=== PATIENT | male | born 1945 | race Caucasian/White ===

== ENCOUNTER 2016-09-01 11:25 | Emergency (ER) | payer MEDICARE ==
[2016-09-01 12:00] LABS: #Basophils 0.1 thou/uL (0.0-0.2); #Eosinphils 0.2 thou/uL (0.0-0.7); #Lymphocytes 1.1 thou/uL (1.20-3.40); #Monocytes 0.7 thou/uL (0.11-0.59); #Neutrophils 7.4 thou/uL (1.40-6.50); %Basophils 1.3 % (0.0-1.0); %Eosinophils 1.9 % (0.0-10.0); Hematocrit 41.1 % (42.0-52.0); Red Blood Cell (RBC) Count 4.24 mill/uL (4.70-6.10); White Blood Cell (WBC) Count 9.4 thou/uL (4.8-10.8)
[2016-09-01 12:07] LABS: ALT (SGPT) 27 U/L (0-55); AST (SGOT) 20 U/L (5-34); Alkaline Phosphatase 49 U/L (40-150); Anion Gap 13 mmol/L (10-20); BUN (Urea Nitrogen) 13 mg/dL (8.4-25.7); Bilirubin, Total 0.8 mg/dL (0.2-1.2); Calc. Creatinine Clearance 0 mL/min (70-130); Calcium 9.5 mg/dL (7.8-10.44); Carbon Dioxide 25 mmol/L (23-31); Chloride 105 mmol/L (98-107); Estimated GFR-MDRD 70; Protein, Total 7.3 g/dL (5.8-8.1)
[2016-09-01 12:09] LABS: Troponin I Less than 0.010 ng/mL (< 0.028)
[2016-09-01 12:24] LABS: Lactic Acid - Sepsis 1.4 mmol/L (0.5-2.2)
--- NOTE | 2016-09-01 13:34 | ERRECORD ---
[facility] EMERGENCY RECORD HPI COUGH CHIEF COMPLAINT: Patient presents for evaluation of cough, productive of white sputum, Patient presents for evaluation of congestion. (12:00 JPIP) HISTORIAN: History provided by patient, History provided by patient's spouse, call from Dr Frost. (12:00 JPIP) LOCATION: No localizing symptoms. (12:00 JPIP) SEVERITY: Current severity of pain rated as 7/10. (12:00 JPIP) TIME COURSE: Gradual onset of symptoms, 2, weeks ago, There has been no change in the patient's symptoms over time. (12:00 JPIP) ASSOCIATED WITH: Associated with chest pain, No associated chills, No associated diarrhea, No associated dyspnea on exertion, No associated fever, No associated hyperventilation, No associated nausea, No associated peripheral edema, No associated stridor, Associated with upper respiratory infection, No associated wheezing, has finished a coarse levaquin, with a round of ABX approx. 1week prior to this round. (12:00 JPIP) EXACERBATED BY: Patient's condition exacerbated by nothing. (12:00 JPIP) RELIEVED BY: Patient's condition relieved by nothing. (12:00 JPIP) E/M CAVEAT: Emergency room caveat invoked due to patient with dementia. (12:03 JPIP) ROS (12:02 JPIP) CONSTITUTIONAL: Historian denies chills, denies fever. EYES: Historian denies eye pain, denies eye redness. ENT: Historian denies dysphagia, denies rhinorrhea, denies sore throat. CARDIOVASCULAR: Historian reports chest pain, pleuritic, no radiation, Historian denies diaphoresis, denies dyspnea on exertion, denies edema, denies palpitations. chest pain with cough. RESPIRATORY: Historian reports cough, denies shortness of breath, reports sputum. described as thick, clear, Historian denies stridor, denies wheezing. GI: Historian denies abdominal pain, denies diarrhea, denies nausea, denies vomiting. MUSCULOSKELETAL: Negative musculoskeletal review of systems. SKIN: Historian denies rash, denies skin changes, denies skin lesions. NEUROLOGIC: Historian denies headache, denies lethargy, denies mental status changes. NOTES: All systems reviewed, negative except as described above., Emergency room caveat invoked due to patient with dementia. PAST MEDICAL HISTORY (11:32 KMOR) MEDICAL HISTORY: Flu vaccine not up to date, Tetanus not up to date, Pneumococcal vaccine not up to date, Past medical history includes history of diabetes, Type II, Past medical history includes &a-1R&a+25V*p+0X*[id number]*c202B*c15G*c2P*p-0X&a-25V&a+1R Name: Jhonathan Granado : 1945 M71 MedRec: [id number] AcctNum: [id number] Prepared: Daly Sep 01, 2016 13:30 by Interface Page 1 of 4 pMD [facility] EMERGENCY RECORD history of hypertension, history of malignancy. primary site prostate, to bladder, Past medical history includes neurological disease, Alzheimer's disease. MALE SURGICAL HISTORY: Surgical history of prostatectomy. PSYCHIATRIC HISTORY: Psychiatric history includes, depression. SOCIAL HISTORY: Patient drinks socially, rarely, Patient denies drug use, Patient has no smoking history. KNOWN ALLERGIES Penicillins CURRENT MEDICATIONS hydrochlorothiazide: TABLET : Strength - 25 mg : ORAL Patient Dose: 25 mg Oral once a day. (11:53 KMOR) ALPRAZolam: TABLET : Strength - 0.5 mg : ORAL Patient Dose: 0.5 mg Oral 2 times a day. (11:54 KMOR) sertraline: TABLET : Strength - 100 mg : ORAL Patient Dose: 100 mg Oral once a day. (11:54 KMOR) traZODone: TABLET : Strength - 100 mg : ORAL Patient Dose: 100 mg Oral once a day (at bedtime). (11:55 KMOR) lansoprazole: CAPSULE,DELAYED RELEASE (ENTERIC COATED) : Strength - 30 mg : ORAL Patient Dose: 30 mg Oral once a day. (11:55 KMOR) Namenda: TABLET : Strength - 10 mg : ORAL Patient Dose: 10 mg Oral 2 times a day. (11:55 KMOR) lisinopril: TABLET : Strength - 20 mg : ORAL Patient Dose: 20 mg Oral once a day. (11:56 KMOR) Klor-Con: PACKET (EA) : Strength - 20 mEq : ORAL Patient Dose: 20 mEq Oral once a day. (11:56 KMOR) [employer] Thyroid: TABLET : Strength - 30 mg : ORAL Patient Dose: 30 mg Oral once a day. (11:56 KMOR) VITAL SIGNS VITAL SIGNS: BP: 139/86, Pulse: 66, Resp: 18, Temp: 97.5 (Oral), O2 sat: 98 on Room Air, Time: 09/01/2016 11:28. (11:28 KMOR) Pain: 7, Time: 09/01/2016 11:46. (11:46 KMOR) BP: 129/70, Pulse: 71, Resp: 21, O2 sat: 97 on Room Air, Time: 09/01/2016 12:30. (12:30 KMOR) &a-1R&a+25V*p+0X*r0102S*c202B*c15G*c2P*p-0X&a-25V&a+1R Name: Jhonathan Granado : 1945 M71 MedRec: [id number] AcctNum: [id number] Prepared: Daly Sep 01, 2016 13:30 by Interface Page 2 of 4 pMD [facility] EMERGENCY RECORD BP: 128/69, Pulse: 70, Resp: 20, Temp: 98.0 (Oral), Pain: 4, O2 sat: 97 on Room Air, Time: 09/01/2016 13:00. (13:00 LSMI) PHYSICAL EXAM (12:03 [facility]) CONSTITUTIONAL: Vital Signs Reviewed, Patient afebrile, Pulse normal, Blood pressure normal, Respiratory rate normal, Normal pulse oximetry, Patient appears non toxic, Patient appears pain free, Nursing notes reviewed. HEAD: Head exam included findings of head atraumatic, normocephalic. EYES: Eye exam included findings of eyelids normal to inspection, Conjunctiva normal, Sclera normal, no periorbital ecchymosis, no periorbital edema, no periorbital erythema. ENT: Pharynx exam normal, not injected, no swelling, symmetrical, Uvula exam normal. NECK: Neck exam included findings of normal range of motion, Trachea midline, no cervical adenopathy, no tenderness. RESPIRATORY CHEST: Respiratory exam included findings of no respiratory distress, Breath sounds clear, No wheezing, No rales, No rhonchi, Breath sounds not absent, Breath sounds not diminished. CARDIOVASCULAR: Cardiovascular exam included findings of heart rate regular rate and rhythm, Heart sounds normal. BACK: Back exam included findings of normal inspection, transverse surgical scar left lower back. UPPER EXTREMITY: Upper extremity exam included findings of inspection normal, Range of motion normal. NEURO: Michael coma scale 15, Gait normal, no focal motor deficits. SKIN: Skin exam included findings of skin warm, dry, and normal in color. LYMPHATIC: Lymphatic exam included findings of cervical nodes normal, Submandibular normal. PSYCHIATRIC: Affect, flat. EKG INTERPRETATION (12:05 JPIP) MONITOR STRIP: extension work instructor strip interpreted by Emergency Department Physician, Monitor strip shows normal sinus rhythm, with no ectopics. 12 LEAD EKG INTERPRETATION: 12 lead EKG interpreted by Emergency Department Physician at time of study, 12 lead EKG shows normal sinus rhythm, Rate (beats per minute): 60, with no ectopics, Conduction with, incomplete right bundle branch block, ST segments normal, T waves normal, [place] normal, Clinical impression:, non-specific EKG, other dysrhythmia RBBB. RADIOLOGYINTERPRETATION (11:59 JPIP) CHEST: Chest films negative, no infiltrates, no pneumothorax, no hemothorax, no masses, no cardiomegaly, no congestive heart failure, no effusion, no free air. INFORMATICS DEVELOPER: Preliminary review of x-rays by, ED Physician. &a-1R&a+25V*p+0X*c6746S*c202B*c15G*c2P*p-0X&a-25V&a+1R Name: Jhonathan Granado : 1945 M71 MedRec: [id number] AcctNum: [id number] Prepared: Daly Sep 01, 2016 13:30 by Interface Page 3 of 4 pMD [facility] EMERGENCY RECORD DOCTOR NOTES (13:19 JPIP) TEXT: Patient had no coughing while in the ED. None. PROBLEM LIST No recorded problems DIAGNOSIS (12:46 JPIP) FINAL: PRIMARY: Cough, ADDITIONAL: resolving bronchitis. PRESCRIPTION (12:44 JPIP) Tessalon Perles: CAPSULE (HARD, SOFT, ETC.) : 100 mg : ORAL : Quantity: 1 Unit: cap(s) Route: ORAL Schedule: every 8 hours PRN Dispense: 30 May substitute. Refills: No Refills . NOTES: for cough No refills. DISPOSITION PATIENT: Disposition Type: Discharge, Disposition: *Discharge Home, Condition: Good. (12:46 TAVO) Patient left the department. (13:23 RENEE) Melgar: TAVO=DO Guerra Joseph KMOR=SHERI Van, Lisa BRENNANI=AUSTIN Henry Leah &a-1R&a+25V*p+0X*[id number]*c202B*c15G*c2P*p-0X&a-25V&a+1R Name: Jhonathan Granado : 1945 M71 MedRec: [id number] AcctNum: [id number] Prepared: Daly Sep 01, 2016 13:30 by Interface Page 4 of 4 pMD MTDD
--- NOTE | 2016-09-01 13:38 | PICIS ---
[facility] EMERGENCY RECORD TRIAGE (MonSep 01, 2016 11:27 KMOR) TRIAGE NOTES: Cough and congestion x2 weeks, chest pain and back pain. Sent from pcp. (MonSep 01, 2016 11:27 KMOR) PATIENT: NAME: Jhonathan Granado, AGE: 71, GENDER: male, : Mon1945, TIME OF GREET: MonSep 01, 2016 11:26, PREFERRED LANGUAGE: Nepali, ETHNICITY: Not or , ECODE BILLING MAP: [facility], SSN: [id number], Zip Code: [address], KG WEIGHT: 88.45, PHONE: , , , PERSON ID: [id number], PAYMENT: [facility], [place], PCP: Elizabet ALMANZAR KRISTI. (MonSep 01, 2016 11:27 KMOR) COMPLAINT: Cough. (MonSep 01, 2016 11:27 KMOR) ADMISSION: URGENCY: 3 Urgent, ADMISSION SOURCE: Doctor's Office, TRANSPORT: CAR, BED: ER -03. (MonSep 01, 2016 11:27 KMOR) ASSESSMENT: Assessment: A&XO4. RR EVEN AND UNLABORED., Symptoms began greater than 1 week ago. (11:32 KMOR) PAIN: Patient complains of pain described as. (11:32 KMOR) SIRS SCORING: Heart Rate 55-109 (0), Temp range 96.8-101.1 (0), respiratory rate 12-24 (0), Mental Status altered: no (0), Infection or Suspected Infection: No. (11:32 KMOR) TRIAGE SCREENING: Patient denies suicidal ideation, Patient denies presence of domestic violence. (11:32 KMOR) PROVIDERS: TRIAGE NURSE: Lisa Van RN. ([place] Sep 01, 2016 11:27 KMOR) VITAL SIGNS: BP 139/86, Pulse 66, Resp 18, Temp 97.5, (Oral), O2 Sat 98, on Room Air, Time 09/01/2016 11:28. (11:28 KMOR) KNOWN ALLERGIES Penicillins CURRENT MEDICATIONS hydrochlorothiazide: TABLET : Strength - 25 mg : ORAL Patient Dose: 25 mg Oral once a day. (11:53 KMOR) ALPRAZolam: TABLET : Strength - 0.5 mg : ORAL Patient Dose: 0.5 mg Oral 2 times a day. (11:54 KMOR) sertraline: TABLET : Strength - 100 mg : ORAL Patient Dose: 100 mg Oral once a day. (11:54 KMOR) traZODone: TABLET : Strength - 100 mg : ORAL Patient Dose: 100 mg Oral once a day (at bedtime). (11:55 KMOR) lansoprazole: CAPSULE,DELAYED RELEASE (ENTERIC COATED) : Strength - 30 mg : ORAL Patient Dose: 30 mg Oral once a day. (11:55 KMOR) Namenda: TABLET : Strength - 10 mg : ORAL Patient Dose: 10 mg Oral 2 times a day. (11:55 KMOR) &a-1R&a+25V*p+0X*o7956T*c202B*c15G*c2P*p-0X&a-25V&a+1R Name: Jhonathan Granado : 1945 M71 MedRec: [id number] AcctNum: [id number] Prepared: [facility] Sep 01, 2016 13:36 by Interface Page 1 of 10 pMD [facility] EMERGENCY RECORD lisinopril: TABLET : Strength - 20 mg : ORAL Patient Dose: 20 mg Oral once a day. (11:56 KMOR) Klor-Con: PACKET (EA) : Strength - 20 mEq : ORAL Patient Dose: 20 mEq Oral once a day. (11:56 KMOR) MANUFACTURING TECHNOLOGIST Thyroid: TABLET : Strength - 30 mg : ORAL Patient Dose: 30 mg Oral once a day. (11:56 KMOR) VITAL SIGNS VITAL SIGNS: BP: 139/86, Pulse: 66, Resp: 18, Temp: 97.5 (Oral), O2 sat: 98 on Room Air, Time: 09/01/2016 11:28. (11:28 KMOR) Pain: 7, Time: 09/01/2016 11:46. (11:46 KMOR) BP: 129/70, Pulse: 71, Resp: 21, O2 sat: 97 on Room Air, Time: 09/01/2016 12:30. (12:30 KMOR) BP: 128/69, Pulse: 70, Resp: 20, Temp: 98.0 (Oral), Pain: 4, O2 sat: 97 on Room Air, Time: 09/01/2016 13:00. (13:00 LSMI) NURSING ASSESSMENT: FALL RISK (11:58 KMOR) FALL RISK: Fall risk assessment findings include: no history of falls (0), No bed rest greater than 2 days (0), No use of level of consciousness altering agents with mentation or cognitive changes (0), No change in blood pressure (0), No sensory deficits (0), No impaired mobility (0), Neurologic diagnosis (3), No elimination problems (0), No confusion (0), Total score 3. NURSING ASSESSMENT: RESPIRATORY /CHEST (11:57 KMOR) CONSTITUTIONAL: Patient arrives ambulatory, Gait steady, History obtained from patient, Patient appears comfortable, Patient cooperative, Patient alert, Oriented to person, place and time, Skin warm, Skin dry, Skin normal in color, Mucous membranes pink, Mucous membranes moist, Patient is well-groomed, Patient complains of Cough, Patient reports cough for 2 weeks, reports coughing up more now than 2 weeks ago. No fever. Reports has been on levaquin but not improving, sent from pcp. PAIN: aching pain, to the left chest, on a scale 0-10 patient rates pain as 7, Pain exacerbated by, lying down, Pain exacerbated by, coughing. RESPIRATORY/CHEST: Breath sounds clear, Respiratory assessment findings include respiratory effort easy, Respirations regular, Conversing normally, Neck and chest exam findings include trachea midline, Chest expansion equal, Chest movement symmetrical, no signs of distress, no retractions noted, Associated with cough, productive of, green sputum. ENT: Ear assessment findings include ear normal to inspection, Nasal assessment findings include nose normal to inspection, Sinuses normal, Nasal mucosa normal, Congestion, bilaterally, Mouth and throat assessment findings include mouth inspection normal, Uvula normal, Tonsils normal, Mucous &a-1R&a+25V*p+0X*p8666N*c202B*c15G*c2P*p-0X&a-25V&a+1R Name: Jhonathan Granado : 1945 M71 MedRec: [id number] AcctNum: [id number] Prepared: [place] Sep 01, 2016 13:36 by Interface Page 2 of 10 D [facility] EMERGENCY RECORD membranes pink, and moist, Able to swallow, Speech normal, no associated fever. NOTES: Patient tolerated procedure well. NURSING PROCEDURE: BUSHLER (11:47 KMOR) PATIENT IDENTIFIER: Patient actively involved in identification process, Patient's identity verified by patient stating name, Patient's identity verified by patient stating date. BUSHLER: Cardiac monitoring indicated for complaint of chest pain, Patient placed on direct support worker, Heart rate: 66, showing normal sinus rhythm, Patient placed on non-invasive blood pressure monitor, with disposable blood pressure cuff applied, Patient placed on continuous pulse oximetry, Adult/pediatric oxisensor applied, Oxygen saturation 98%. NOTES: Patient tolerated procedure well. NURSING PROCEDURE: DISCHARGE NOTE (13:02 LSMI) DISCHARGE: Patient discharged to home, ambulating without assistance, driving self, accompanied by //partner, Summary of Care printed/ provided, Transition record given to patient, Prescriptions given and instructions on side effects given, Name of prescription(s) given: Jose NIX person(s) verbalized understanding of discharge instructions and follow-up care, Patient treated and evaluated by physician, Notes: PT DC'D WITH INSTRUCTIONS GIVEN. CONDITION STABLE. NO DISTRESS IS NOTED ON DC. RRR. NO COUGH SINCE ARRIVAL IN ER OR SOB. NURSING PROCEDURE: EKG CHART (11:42 LSMI) PATIENT IDENTIFIER: Patient actively involved in identification process, Patient's identity verified by patient stating name, Patient's identity verified by patient stating date, Patient's identity verified by hospital ID bracelet. EKG: EKG indicated for complaint of chest pain, 12 lead EKG performed on the left chest, done by Clover HENRY LVN, first EKG. FOLLOW-UP: After procedure, EKG for interpretation given to Dr. GUERRA. NURSING PROCEDURE: IV PATIENT IDENITIFIER: Patient actively involved in identification process, Patient's identity verified by patient stating name, Patient's identity verified by patient stating date. (11:45 KMOR) Patient actively involved in identification process, Patient's identity verified by patient stating name, Patient's identity verified by patient stating date. (12:55 LSMI) IV SITE 1: IV therapy indicated for hydration, IV therapy indicated for medication administration, IV established, to the right antecubital, using an 18 gauge catheter, in one attempt, Saline lock established, Flushed with normal saline (mls): 10, Labs drawn at time of placement, labeled in the presence of the patient and sent to lab, &a-1R&a+25V*p+0X*w3949U*c202B*c15G*c2P*p-0X&a-25V&a+1R Name: Jhonathan Granado : 1945 M71 MedRec: [id number] AcctNum: [id number] Prepared: MonSep 01, 2016 13:36 by Interface Page 3 of 10 pMD [facility] EMERGENCY RECORD Blood cultures drawn at time of placement, labeled in the presence of the patient and sent to lab. (11:45 KMOR) FOLLOW-UP SITE 1: After procedure, 2x3 ensure dressing applied, After procedure, no drainage at IV site, After procedure, no swelling at IV site, After procedure, no redness at IV site. (11:45 KMOR) IV discontinued, due to patient being discharged, catheter intact, After removal, sterile dressing applied to IV site. (12:55 LSMI) NOTES: Patient tolerated procedure well. (11:45 KMOR) NURSING PROCEDURE: NURSE NOTES (12:47 KMOR) NURSES NOTES: Notes: Dr. Guerra in to review results with patient. NURSING PROCEDURE: TRANSPORT TO TESTS (11:57 KMOR) PATIENT IDENTIFIER: Patient actively involved in identification process, Patient's identity verified by patient stating name, Patient's identity verified by patient stating date. FOLLOW-UP: After procedure, patient returned to emergency department. ORDER DETAILS Order Name: B type Natriuretic Peptide, Status: Active, Time: 11:31 09/01/2016, User: TAVO, - Ordered for: DO Guerra Joseph, - Entered by: DO Guerra Joseph - [facility] Sep 01, 2016 11:31, - Quantity: 1, Order Name: Cardiac Profile w/CKMB & Troponin - I, Status: Active, Time: 11:31 09/01/2016, User: TAVO, - Ordered for: DO Guerra Joseph, - Entered by: DO Guerra Joseph - [facility] Sep 01, 2016 11:31, - Quantity: 1, Order Name: CBC with Differential, Status: Active, Time: 11:31 09/01/2016, User: TAVO, - Ordered for: DO Guerra Joseph, - Entered by: DO Guerra Joseph - [place] Sep 01, 2016 11:31, - Quantity: 1, Order Name: Comprehensive Metabolic Panel, Status: Active, Time: 11:31 09/01/2016, User: TAVO, - Ordered for: DO Guerra Joseph, - Entered by: DO Guerra Joseph - MonSep 01, 2016 11:31, - Quantity: 1, Order Name: Culture, Blood, Status: Active, Time: 11:33 09/01/2016, User: TAVO, - Ordered for: DO Guerra Joseph, - Entered by: DO Guerra Joseph - [place] Sep 01, 2016 11:33, - Quantity: 1, Order Name: EKG 12 Lead in Emergency Room, Status: Active, Time: 11:33 09/01/2016, User: TAVO, - Ordered for: DO Guerra Joseph, &a-1R&a+25V*p+0X*c3759R*c202B*c15G*c2P*p-0X&a-25V&a+1R Name: Neetunikhilshandapieter Jhonathan Princess : 1945 M71 MedRec: [id number] AcctNum: [id number] Prepared: MonSep 01, 2016 13:36 by Interface Page 4 of 10 D [facility] EMERGENCY RECORD - Entered by: DO Guerra Joseph - [place] Sep 01, 2016 11:33, - Quantity: 1, Order Name: ERRT Pulse Oximeter ER, Status: Active, Time: 11:33 09/01/2016, User: TAVO, - Ordered for: DO Guerra Joseph, - Entered by: DO Guerra Joseph - [place] Sep 01, 2016 11:33, - Quantity: 1, Order Name: Lactic Acid with repeat, Status: Active, Time: 11:36 09/01/2016, User: TAVO, - Ordered for: DO Guerra Joseph, - Entered by: DO Guerra Joseph - [place] Sep 01, 2016 11:36, - Quantity: 1, Order Name: SALINE LOCK, Status: Done, Time: 11:46 09/01/2016, User: KMOR, - Ordered for: DO Guerra Joseph, - Entered by: DO Guerra Joseph - [facility] Sep 01, 2016 11:33, - Quantity: 1, Order Name: XR Chest Pa & Lat STANDARD, Status: Active, Time: 11:32 09/01/2016, User: TAVO, - Ordered for: DO Guerra Joseph, - Entered by: DO Guerra Joseph - [place] Sep 01, 2016 11:32, - Quantity: 1. HPI COUGH CHIEF COMPLAINT: Patient presents for evaluation of cough, productive of white sputum, Patient presents for evaluation of congestion. (12:00 JPIP) HISTORIAN: History provided by patient, History provided by patient's spouse, call from Dr Frost. (12:00 JPIP) LOCATION: No localizing symptoms. (12:00 JPIP) SEVERITY: Current severity of pain rated as 7/10. (12:00 JPIP) TIME COURSE: Gradual onset of symptoms, 2, weeks ago, There has been no change in the patient's symptoms over time. (12:00 JPIP) ASSOCIATED WITH: Associated with chest pain, No associated chills, No associated diarrhea, No associated dyspnea on exertion, No associated fever, No associated hyperventilation, No associated nausea, No associated peripheral edema, No associated stridor, Associated with upper respiratory infection, No associated wheezing, has finished a coarse levaquin, with a round of ABX approx. 1week prior to this round. (12:00 JPIP) EXACERBATED BY: Patient's condition exacerbated by nothing. (12:00 JPIP) RELIEVED BY: Patient's condition relieved by nothing. (12:00 JPIP) E/M CAVEAT: Emergency room caveat invoked due to patient with dementia. (12:03 JPIP) ROS (12:02 JPIP) CONSTITUTIONAL: Historian denies chills, denies fever. EYES: Historian denies eye pain, denies eye redness. ENT: Historian denies dysphagia, denies rhinorrhea, denies sore &a-1R&a+25V*p+0X*s8075V*c202B*c15G*c2P*p-0X&a-25V&a+1R Name: Jhonathan Granado: 1945 M71 MedRec: [id number] AcctNum: [id number] Prepared: MonSep 01, 2016 13:36 by Interface Page 5 of 10 pMD [facility] EMERGENCY RECORD throat. CARDIOVASCULAR: Historian reports chest pain, pleuritic, no radiation, Historian denies diaphoresis, denies dyspnea on exertion, denies edema, denies palpitations. chest pain with cough. RESPIRATORY: Historian reports cough, denies shortness of breath, reports sputum. described as thick, clear, Historian denies stridor, denies wheezing. GI: Historian denies abdominal pain, denies diarrhea, denies nausea, denies vomiting. MUSCULOSKELETAL: Negative musculoskeletal review of systems. SKIN: Historian denies rash, denies skin changes, denies skin lesions. NEUROLOGIC: Historian denies headache, denies lethargy, denies mental status changes. NOTES: All systems reviewed, negative except as described above., Emergency room caveat invoked due to patient with dementia. PAST MEDICAL HISTORY (11:32 KMOR) MEDICAL HISTORY: Flu vaccine not up to date, Tetanus not up to date, Pneumococcal vaccine not up to date, Past medical history includes history of diabetes, Type II, Past medical history includes history of hypertension, history of malignancy. primary site prostate, to bladder, Past medical history includes neurological disease, Alzheimer's disease. MALE SURGICAL HISTORY: Surgical history of prostatectomy. PSYCHIATRIC HISTORY: Psychiatric history includes, depression. SOCIAL HISTORY: Patient drinks socially, rarely, Patient denies drug use, Patient has no smoking history. PHYSICAL EXAM (12:03 JPIP) CONSTITUTIONAL: Vital Signs Reviewed, Patient afebrile, Pulse normal, Blood pressure normal, Respiratory rate normal, Normal pulse oximetry, Patient appears non toxic, Patient appears pain free, Nursing notes reviewed. HEAD: Head exam included findings of head atraumatic, normocephalic. EYES: Eye exam included findings of eyelids normal to inspection, Conjunctiva normal, Sclera normal, no periorbital ecchymosis, no periorbital edema, no periorbital erythema. ENT: Pharynx exam normal, not injected, no swelling, symmetrical, Uvula exam normal. NECK: Neck exam included findings of normal range of motion, Trachea midline, no cervical adenopathy, no tenderness. RESPIRATORY CHEST: Respiratory exam included findings of no respiratory distress, Breath sounds clear, No wheezing, No rales, No &a-1R&a+25V*p+0X*h2589I*c202B*c15G*c2P*p-0X&a-25V&a+1R Name: Jhonathan Granado : 1945 M71 MedRec: [id number] AcctNum: [id number] Prepared: MonSep 01, 2016 13:36 by Interface Page 6 of 10 pMD [facility] EMERGENCY RECORD rhonchi, Breath sounds not absent, Breath sounds not diminished. CARDIOVASCULAR: Cardiovascular exam included findings of heart rate regular rate and rhythm, Heart sounds normal. BACK: Back exam included findings of normal inspection, transverse surgical scar left lower back. UPPER EXTREMITY: Upper extremity exam included findings of inspection normal, Range of motion normal. NEURO: [place] coma scale 15, Gait normal, no focal motor deficits. SKIN: Skin exam included findings of skin warm, dry, and normal in color. LYMPHATIC: Lymphatic exam included findings of cervical nodes normal, Submandibular normal. PSYCHIATRIC: Affect, flat. LAB INTERPRETATION (12:44 JPIP) INTERPRETATION: I reviewed the lab results, No clinically significant lab abnormalities, CBC abnormal, White blood cell count normal, Neutrophils elevated, Chemistry normal, Cardiac enzymes normal, Liver functions normal, Lactate normal. EVENTS TRANSFER: Triage to Emergency Emergency Room -03. (MonSep 01, 2016 11:27 KMOR) Removed from Emergency Emergency Room -03. (13:23 KMOR) RADIOLOGYINTERPRETATION (11:59 JPIP) CHEST: Chest films negative, no infiltrates, no pneumothorax, no hemothorax, no masses, no cardiomegaly, no congestive heart failure, no effusion, no free air. MACHINE STOPPAGE FREQUENCY CHECKER: Preliminary review of x-rays by, ED Physician. EKG INTERPRETATION (12:05 JPIP) MONITOR STRIP: aeroplane pilot strip interpreted by Emergency Department Physician, Monitor strip shows normal sinus rhythm, with no ectopics. 12 LEAD EKG INTERPRETATION: 12 lead EKG interpreted by Emergency Department Physician at time of study, 12 lead EKG shows normal sinus rhythm, Rate (beats per minute): 60, with no ectopics, Conduction with, incomplete right bundle branch block, ST segments normal, T waves normal, [place] normal, Clinical impression:, non-specific EKG, other dysrhythmia RBBB. O2SAT INTERPRETATION (11:33 JPIP) O2SAT: Continuous pulse oximetry, Oxygen saturation 98%, on room air, Oxygen saturation interpretation: Normal, No intervention required. DOCTOR NOTES (13:19 JPIP) TEXT: Patient had no coughing while in the ED. None. &a-1R&a+25V*p+0X*u1542B*c202B*c15G*c2P*p-0X&a-25V&a+1R Name: Jhonathan Granado : 1945 M71 MedRec: [id number] AcctNum: [id number] Prepared: MonSep 01, 2016 13:36 by Interface Page 7 of 10 pMD [facility] EMERGENCY RECORD PROBLEM LIST No recorded problems DIAGNOSIS (12:46 JPIP) FINAL: PRIMARY: Cough, ADDITIONAL: resolving bronchitis. DISPOSITION PATIENT: Disposition Type: Discharge, Disposition: *Discharge Home, Condition: Good. (12:46 JPIP) Patient left the department. (13:23 KMOR) INSTRUCTION (12:46 JPIP) DISCHARGE: VIRAL SYNDROME (ADULT). FOLLOWUP: Elizabet ALMANZAR KRISTI, Family Practice, [facility] [id number], [phone]. SPECIAL: Call your Primary Care Physician in the morning for a follow up appointment Follow up with Primary Care Physician within 72 hours Return to the Emergency Department for increased symptoms problems or concerns. PRESCRIPTION (12:44 JPIP) Tessalon Perles: CAPSULE (HARD, SOFT, ETC.) : 100 mg : ORAL : Quantity: 1 Unit: cap(s) Route: ORAL Schedule: every 8 hours PRN Dispense: 30 May substitute. Refills: No Refills . NOTES: for cough No refills. IMAGING *EKG: Image captured from scanner. (12:07 LSMI) *DISCHARGE INSTRUCTIONS RECEIPT: Image captured from scanner. (13:03 LSMI) *SUPPLY CHARGE SHEET: Image captured from scanner. (13:03 LSMI) RESULTS LABORATORY: CBC with Differential Collection DT: MonSep 01, 2016 11:56, White Blood Cell (WBC) Count 9.4 thou/uL, Range (4.8-10.8), *Red Blood Cell (RBC) Count 4.24 - L mill/uL, Range (4.70-6.10), Hemoglobin 14.4 g/dL, Range (14.0-18.0), *Hematocrit 41.1 - L %, Range (42.0-52.0), *Mean Corpuscular Volume 96.9 - H fl, Range (80.0-94.0), *Mean Corpuscular Hemoglobin 34.0 - H pg, Range (27.0-31.0), Mean Corpuscular HGB CONC 35.1 g/dL, Range (32.0-36.0), *RBC Distribution Width 10.9 - L %, Range (11.5-14.5), Platelet Count 237 thou/uL, Range (130-400), *Mean Platelet Volume 6.0 - L fL, Range (7.4-10.4), &a-1R&a+25V*p+0X*b0252R*c202B*c15G*c2P*p-0X&a-25V&a+1R Name: Jhonathan Granado : 1945 M71 MedRec: [id number] AcctNum: [id number] Prepared: [place] Sep 01, 2016 13:36 by Interface Page 8 of 10 pMD [facility] EMERGENCY RECORD *%Neutrophils 78.5 - H %, Range (42.0-75.0), *%Lymphocytes 11.4 - L %, Range (21.0-51.0), %Monocytes 7.0 %, Range (0.0-10.0), %Eosinophils 1.9 %, Range (0.0-10.0), *%Basophils 1.3 - H %, Range (0.0-1.0), *#Neutrophils 7.4 - H thou/uL, Range (1.40-6.50), *#Lymphocytes 1.1 - L thou/uL, Range (1.20-3.40), *#Monocytes 0.7 - H thou/uL, Range (0.11-0.59), #Eosinphils 0.2 thou/uL, Range (0.0-0.7), #Basophils 0.1 thou/uL, Range (0.0-0.2). (12:06 [facility]) Cardiac Profile w/CKMB & TropI Collection DT: MonSep 01, 2016 11:56, CKMB 1.1 ng/mL, Range (0-6.6), Troponin I Less than 0.010 ng/mL, Range (< 0.028), Reference Range , 0.00 - 0.028 ng/mL Negative 0.029 - 0.29 ng/mL , Indeterminate Greater or Equal to 0.3 ng/mL Strongly suggests [place] , . (12:15 [facility]) B type Natriuretic Peptide Collection DT: MonSep 01, 2016 11:56, B type Natriuretic Peptide 11.3 pg/mL, Range (0-100). (12:15 [facility]) Comprehensive Metabolic Panel Collection DT: MonSep 01, 2016 11:56, Sodium 139 mmol/L, Range (136-145), Potassium 3.8 mmol/L, Range (3.5-5.1), Chloride 105 mmol/L, Range (98-107), Carbon Dioxide 25 mmol/L, Range (23-31), Anion Gap 13 mmol/L, Range (10-20), BUN (Urea Nitrogen) 13 mg/dL, Range (8.4-25.7), Creatinine 1.04 mg/dL, Range (0.7-1.3), Estimated GFR-MDRD 70 , Reference Range for Estimated GFR: Greater than 90, mL/min/1.73 m2 NOTE: The MDRD equation has not been validated for use, with the elderly (over 70 years of age), women, patients with, serious comorbid condition or persons with extremes of body size, muscle, mass, or nutritional status. , Glucose 110 mg/dL, Range (83-110), Calcium 9.5 mg/dL, Range (7.8-10.44), Bilirubin, Total 0.8 mg/dL, Range (0.2-1.2), Protein, Total 7.3 g/dL, Range (5.8-8.1), NOTE: Plasma values are generally 0.3 to 0.5 g/dL higher than serum values, due to the presence of fibrinogen. , Albumin 4.3 g/dL, Range (3.4-4.8), Globulin 3.0 g/dL, Range (2.4-3.5), Alb/Glob Ratio 1.4 g/dL, Range (1.2-2.2), Alkaline Phosphatase 49 U/L, Range (40-150), AST (SGOT) 20 U/L, Range (5-34), ALT (SGPT) 27 U/L, Range (0-55). (12:15 JPIP) Lactic Acid for Sepsis Collection DT: MonSep 01, 2016 11:56, &a-1R&a+25V*p+0X*j1093E*c202B*c15G*c2P*p-0X&a-25V&a+1R Name: Jhonathan Granado : 1945 M71 MedRec: [id number] AcctNum: [id number] Prepared: MonSep 01, 2016 13:36 by Interface Page 9 of 10 pMD [facility] EMERGENCY RECORD Lactic Acid - Sepsis 1.4 mmol/L, Range (0.5-2.2). (12:39 JPIP) Melgar: TAVO=DO Guerra Joseph KMOR=SHERI Van, Lisa LSMI=AUSTIN Henry Leah &a-1R&a+25V*p+0X*r6996K*c202B*c15G*c2P*p-0X&a-25V&a+1R Name: Jhonathan Granado : 1945 M71 MedRec: [id number] AcctNum: [id number] Prepared: MonSep 01, 2016 13:36 by Interface Page 10 of 10 pMD MTDD
--- NOTE | 2016-09-01 20:35 | RAD ---
CHEST TWO VIEWS 09/01/16 Comparison is made with a 05/20/15 study. The heart is normal in size. No lobar consolidations or ef fusions were seen. Some haziness near the cardiac apex was present before and is most likely a fat p ad. The trachea is midline. The mediastinum is unchanged in appearance from before. Minor degenerati ve changes are seen in the spine. IMPRESSION: No acute thoracic finding. POS: HOME
== END 2016-09-01 13:02 | disposition home or self-care (01) ==
LOC: BURERS 11:25
DX: J40 Bronchitis, not specified as acute or chronic (principal); E11.9 Type 2 diabetes mellitus without complications; I10 Essential (primary) hypertension; F32.9 Major depressive disorder, single episode, unspecified; Z79.899 Other long term (current) drug therapy
CPT/HCPCS: 71020; 80053; 82553; 83605; 83880; 84484; 85025; 87040; 93005; 94760

== ENCOUNTER 2017-01-11 13:00 | Outpatient (CLI) | payer MEDICARE | END 2017-01-11 13:01 | disposition home or self-care (01) | LOC: LABLEX 13:00 | PROVIDERS: ATTEND Family Medicine | DX: K52.9 Noninfective gastroenteritis and colitis, unspecified (principal) | CPT/HCPCS: 83630; 87015; 87045; 87046; 87328; 87329; 87449; 87899 ==

== ENCOUNTER 2017-09-02 16:07 | Emergency (ER) | payer MEDICARE ==
[2017-09-02 16:51] LABS: INR-International Normal Ratio 0.9; Prothrombin Time 12.3 SEC (12.0-14.7)
[2017-09-02 16:53] LABS: PTT 18.4 SEC (22.9-36.1)
[2017-09-02 16:59] LABS: ALT (SGPT) 26 U/L (8-55); AST (SGOT) 24 U/L (5-34); Albumin 4.7 g/dL (3.4-4.8); Alkaline Phosphatase 62 U/L (40-150); Anion Gap 18 mmol/L (10-20); BUN (Urea Nitrogen) 13 mg/dL (8.4-25.7); Bilirubin, Total 0.5 mg/dL (0.2-1.2); Calc. Creatinine Clearance 0 mL/min (70-130); Calcium 10.2 mg/dL (7.8-10.44); Carbon Dioxide 22 mmol/L (23-31); Chloride 104 mmol/L (98-107); Estimated GFR-MDRD 60; Globulin 3.4 g/dL (2.4-3.5); Glucose 89 mg/dL (83-110); Potassium 4.1 mmol/L (3.5-5.1); Protein, Total 8.1 g/dL (5.8-8.1); Sodium 140 mmol/L (136-145)
[2017-09-02 17:00] LABS: Mean Corpuscular HGB CONC 35.3 g/dL (32.0-36.0); Mean Corpuscular Hemoglobin 33.4 pg (27.0-31.0); Mean Corpuscular Volume 94.4 fl (80.0-94.0); Mean Platelet Volume 5.9 fL (7.4-10.4); Platelet Count 222 thou/uL (130-400); RBC Distribution Width 11.1 % (11.5-14.5); White Blood Cell (WBC) Count 9.5 thou/uL (4.8-10.8)
[2017-09-02 17:01] LABS: CKMB 0.8 ng/mL (0-6.6); Troponin I 0.014 ng/mL (< 0.028)
[2017-09-02 17:04] LABS: Band 1 % (5-11); Eosinophils 4 % (0-10); Lymphocytes 10 % (21-51); MDiff Complete? YES; Monocytes 8 % (0-10); Neutrophil 75 % (42-75)
--- NOTE | 2017-09-02 21:46 | RAD ---
PORTABLE CHEST 09/02/17 An AP portable film at 1605 is compared with a 09/01/16 study. The heart is normal in size. No lobar infiltrate or effusion was seen. Haziness near the cardiac apex is no different than last years study. There is no congestive change. The mediastinum appears normal . IMPRESSION: No acute finding. POS: HOME
== END 2017-09-02 18:10 | disposition home or self-care (01) ==
LOC: BURERS 16:07
DX: R07.89 Other chest pain (principal); E11.9 Type 2 diabetes mellitus without complications; I10 Essential (primary) hypertension; F32.9 Major depressive disorder, single episode, unspecified; Z79.899 Other long term (current) drug therapy
CPT/HCPCS: 71045; 80053; 82553; 84484; 85025; 85610; 85730; 93005; 94760

== ENCOUNTER 2018-07-25 14:58 | Outpatient (CLI) | payer MEDICARE ==
--- NOTE | 2018-07-25 20:46 | RAD ---
CHEST TWO VIEWS: 07/25/18 Comparison is made with the 09/02/17 study. There has been no significant interval change. No focal infiltrate or effusion was seen. The mediasti num and mik showed no acute change. The heart is normal in size. There is no vascular congestion or edema. The trachea is midline. IMPRESSION: No acute thoracic finding. POS: HOME
== END 2018-07-25 14:59 | disposition home or self-care (01) ==
LOC: BURRAD 14:58
PROVIDERS: ATTEND Nurse Practitioner
DX: R05 Cough (principal)
CPT/HCPCS: 71046

== ENCOUNTER 2019-11-12 22:42 | Emergency (ER) | payer MEDICARE ==
[2019-11-12] MEDS ORDERED: Ondansetron ODT 4 MG TAB ONE (23:18)
[2019-11-12] MEDS ORDERED: Morphine 2 MG/ML SYRINGE ONE (23:18)
[2019-11-13] MEDS ORDERED: Bicillin LA 1.2 MILLION UNITS/2 ML SYRINGE ONE (01:13)
--- NOTE | 2019-11-13 08:14 | RAD ---
RIGHT SHOULDER: Date: 11/12/2019 A fracture of the greater tubercle is present with mild displacement. As best as I can tell, the sejal ral neck is intact. There is no dislocation. The AC joint is not widened. IMPRESSION: Greater tubercle fracture. POS: HOME
== END 2019-11-13 00:05 | disposition home or self-care (01) ==
LOC: BURERS 22:42
DX: S42.201A Unspecified fracture of upper end of right humerus, initial encounter for closed fracture (principal); E11.9 Type 2 diabetes mellitus without complications; I10 Essential (primary) hypertension; Z79.899 Other long term (current) drug therapy; W19.XXXA Unspecified fall, initial encounter
CPT/HCPCS: 96372; J0561; J2270; Q0162